=== PATIENT | female | born 1945 | race Caucasian/White ===

== ENCOUNTER → 2021-06-19 | Outpatient (CLI) | payer OTHER ==
[~2021-06-19] MED LIST: DALIRESP500 MCG PO; LIPITOR TAB 2020 MG PO; LYRICA150 MG PO; SPIRIVA HANDIH18 MCG INH; SYMBICORT 160-1 INHA INH; VENTOLIN HFA 66.7 GM INH; ZANTAC150 MG PO
== END ==
LOC: HEART 5 12:48
DX: I83.11 Varicose veins of right lower extremity with inflammation (principal); I83.12 Varicose veins of left lower extremity with inflammation; R60.0 Localized edema
CPT/HCPCS: 93970

== ENCOUNTER 2022-05-17 20:12 | Inpatient (IN) | payer OTHER ==
[~2022-05-17] VITALS: Ht 170.2 cm; Wt 101.2 kg
[~2022-05-17 20:12] MED LIST changes: +PROAIR HFA8.5 GM INH; -VENTOLIN HFA 66.7 GM INH
[2022-05-17 20:49] LABS: RED BLOOD COUNT 3.84 M/UL (4.00-5.10)
[2022-05-17 21:02] LABS: BUN/CREATININE RATIO 21 (0-10)
[2022-05-17 21:10] LABS: WHITE BLOOD COUNT 31.3 K/UL (4.5-11.0)
[2022-05-18] MEDS ORDERED: FAMOTIDINE40 MG PO (09:37)
[2022-05-18] MEDS ORDERED: LATANOPROST 0.7.5 ML OU (09:37)
[2022-05-18] MEDS ORDERED: LOSARTAN POTAS100 MG PO (09:38)
[2022-05-18] MEDS ORDERED: DEXAMETHASONE6 MG PO (09:38)
[2022-05-18] MEDS ORDERED: AZITHROMYCIN250 MG PO (09:39)
[2022-05-18] MEDS ORDERED: LORATADINE10 MG PO (09:39)
[2022-05-18] MEDS ORDERED: VITAMIN D325 MC6 PO (09:40)
[2022-05-18] MEDS ORDERED: VENTOLIN/PROVE0.5 ML INH (09:40)
[2022-05-18 11:56] LABS: HEMOGLOBIN 11.8 gm/dl (12.3-15.3); RED BLOOD COUNT 4.1 M/UL (4.00-5.10)
[2022-05-18 12:16] LABS: WHITE BLOOD COUNT 34.9 K/UL (4.5-11.0)
[2022-05-18 12:23] LABS: BUN/CREATININE RATIO 20 (0-10)
[2022-05-18 18:26] LABS: BUN/CREATININE RATIO 20 (0-10)
[2022-05-19 02:43] LABS: HEMOGLOBIN 11.2 gm/dl (12.3-15.3); RED BLOOD COUNT 3.96 M/UL (4.00-5.10)
[2022-05-19 02:53] LABS: WHITE BLOOD COUNT 31.4 K/UL (4.5-11.0)
[2022-05-19 03:07] LABS: BUN/CREATININE RATIO 21 (0-10)
[2022-05-19 13:21] LABS: BORDETELLA PARAPERTUSSIS Not Detected (Not Detectd); BORDETELLA PERTUSSIS Not Detected (Not Detectd); CHLAMYDIA PNEUMONIAE Not Detected (Not Detectd); CORONAVIRUS HKU1 Not Detected (Not Detectd); CORONAVIRUS NL63 Not Detected (Not Detectd); CORONAVIRUS OC43 Not Detected (Not Detectd); CORONOAVIRUS 229E Not Detected (Not Detectd); HUMAN METAPNEUMOVIRUS Not Detected (Not Detectd); HUMAN RHINOVIRUS/ENTEROVIRUS Not Detected (Not Detectd); INFLUENZA A Not Detected (Not Detectd); INFLUENZA B Not Detected (Not Detectd); MYCOPLASMA PNEUMONIAE Not Detected (Not Detectd); PARAINFLUENZA VIRUS 1 Not Detected (Not Detectd); PARAINFLUENZA VIRUS 2 Not Detected (Not Detectd); PARAINFLUENZA VIRUS 3 Not Detected (Not Detectd); PARAINFLUENZA VIRUS 4 Not Detected (Not Detectd); RESPIRATORY SYNCYTIAL VIRUS Not Detected (Not Detectd)
[2022-05-19 14:32] LABS: SARS-CoV-2 NOT DETECTED (Not Detectd)
[2022-05-20 02:11] LABS: HEMOGLOBIN 11.2 gm/dl (12.3-15.3); RED BLOOD COUNT 3.96 M/UL (4.00-5.10)
[2022-05-20 02:34] LABS: BUN/CREATININE RATIO 29 (0-10)
[2022-05-21 03:01] LABS: HEMOGLOBIN 11.9 gm/dl (12.3-15.3); RED BLOOD COUNT 4.21 M/UL (4.00-5.10)
[2022-05-21 03:15] LABS: WHITE BLOOD COUNT 36.1 K/UL (4.5-11.0)
[2022-05-21 03:25] LABS: BUN/CREATININE RATIO 25 (0-10)
[2022-05-22 03:21] LABS: HEMOGLOBIN 11.5 gm/dl (12.3-15.3); RED BLOOD COUNT 4.08 M/UL (4.00-5.10)
[2022-05-22 03:31] LABS: WHITE BLOOD COUNT 31.4 K/UL (4.5-11.0)
[2022-05-22 04:18] LABS: BUN/CREATININE RATIO 27 (0-10)
[2022-05-22] MEDS ORDERED: ELIQUIS 5 MG TAB5 MG PO (14:22)
[2022-05-22] MEDS ORDERED: DOXYCYCLINE HY100 MG PO (14:22)
[2022-05-22] MEDS ORDERED: OMNICEF 300 MG300 MG PO (14:22)
[2022-05-22] MEDS ORDERED: DILTIAZEM 24HR180 M1 PO (14:22)
== END 2022-05-22 16:18 | disposition home health service (06) | DRG 189 ==
LOC: ER1 20:12 → PROG CARE 23:00 → CDU 23:00 → PROG CARE 05-18 01:07
PROVIDERS: Emergency Medicine; Internal Medicine; ADMIT Internal Medicine
PROC: 5A09357 Assistance with Respiratory Ventilation, Less than 24 Consecutive Hours, Continuous Positive Airway Pressure (ICD-10-PCS; 2022-05-18)
PROC: B24BZZZ Ultrasonography of Heart with Aorta (ICD-10-PCS; principal; 2022-05-19)
PROC: 5A09357 Assistance with Respiratory Ventilation, Less than 24 Consecutive Hours, Continuous Positive Airway Pressure (ICD-10-PCS; 2022-05-19)
PROC: 5A09357 Assistance with Respiratory Ventilation, Less than 24 Consecutive Hours, Continuous Positive Airway Pressure (ICD-10-PCS; 2022-05-21)
DX: J96.21 Acute and chronic respiratory failure with hypoxia (principal); J44.1 Chronic obstructive pulmonary disease with (acute) exacerbation; E66.2 Morbid (severe) obesity with alveolar hypoventilation; C95.11 Chronic leukemia of unspecified cell type, in remission; E87.1 Hypo-osmolality and hyponatremia; J96.22 Acute and chronic respiratory failure with hypercapnia; D64.9 Anemia, unspecified; G62.9 Polyneuropathy, unspecified; I48.0 Paroxysmal atrial fibrillation; I10 Essential (primary) hypertension; R91.1 Solitary pulmonary nodule; E78.5 Hyperlipidemia, unspecified; Z20.822 Contact with and (suspected) exposure to COVID-19; Z98.890 Other specified postprocedural states; Z83.3 Family history of diabetes mellitus; Z79.01 Long term (current) use of anticoagulants; Z68.34 Body mass index [BMI] 34.0-34.9, adult
CPT/HCPCS: ECHO; 0240U; 36415; 36600; 71045; 80048; 80053; 80061; 82550; 82553; 82728; 82803; 83036; 83615; 83735; 83880; 83930; 83935; 84100; 84439; 84443; 84484; 85025; 85027; 85379; 86140; 87070; 87205; 87633; 93005; 93306; 94640; 94660; 94664; 94760; 96374; 97116; 97161; 99285; C9113; G0480; J0248; J0696; J1100; J1650; J1940; J2920; J7030; J7070; Q0177; Q9967

== ENCOUNTER → 2022-08-15 | Outpatient (CLI) | payer OTHER ==
[~2022-08-15] MED LIST changes: +AZITHROMYCIN250 MG PO; +DEXAMETHASONE6 MG PO; +DILTIAZEM 24HR180 M1 PO; +DOXYCYCLINE HY100 MG PO; +ELIQUIS 5 MG TAB5 MG PO; +FAMOTIDINE40 MG PO; +LATANOPROST 0.7.5 ML OU; +LORATADINE10 MG PO; +LOSARTAN POTAS100 MG PO; +OMNICEF 300 MG300 MG PO; +VENTOLIN/PROVE0.5 ML INH; +VITAMIN D325 MC6 PO
== END ==
LOC: KOH-I 08:50
DX: M25.551 Pain in right hip (principal); M25.552 Pain in left hip
CPT/HCPCS: 73522